=== PATIENT | female | born 1980 | race Caucasian/White ===

== ENCOUNTER 2025-04-17 15:04 | Emergency (ER) | payer OTHER ==
[~2025-04-17] VITALS: Ht 160 cm; Wt 58.9 kg
[2025-04-17 15:06] VITALS: BP 116/63; PULSE 79; RESP 16; TEMP 98.6; O2SAT 98
--- NOTE | 2025-04-17 15:45 | Physician Documentation ---
History of Present Illness ~ Chief Complaint: Bite-insect Stated Complaint: INSECT BITE Time Seen by MD: 15:35 HPI This is a 44-year-old female that presents to the emergency department for evaluation of what she thinks is a bug bite to the left lower extremity that she sustained while on a camping trip 3 days ago. That they area of concern presented as a small raised bump and has progressed since that time to an erythematous area approximately 3 in x 3 in is tender to the touch and slightly warm. Denies any fever or nausea or vomiting at this time. Patient denies seeing a bug actually by her but has surmised that is probably what happened. Patient denies any other significant past medical history. Tetanus within 5 years?: No Medication Reconciliation Allergies: Coded Allergies: No Known Allergies (Unverified , 04/17/25) Scheduled Doxycycline Hyclate (Doxycycline Hyclate), 1 CAP PO Q12H Review of Systems ROS As stated above in the HPI, otherwise all systems are reviewed and negative. Physical Exam Vital Signs: Temperature: 98.6, Source: Oral, Heart Rate: 79, Respiratory Rate: 16, BP: 116/63, Pulse Oximetry: 98, Weight: 58.900 Oxygen Flow Rate: 0 Physical Exam VITALS: Reviewed and as above. GENERAL: Alert, no apparent distress. HEENT: Normocephalic, atraumatic, PERRL, EOMI, dry mucosa, no erythema RESPIRATORY: Lungs clear, normal breath sounds, no respiratory distress. CHEST: No accessory muscle use, no retractions CV: Regular rate, rhythm, no edema, no murmur, No: JVD GI: Soft, non-tender, bowels sounds present, no rebound, guarding, or rigidity BACK: No CVA tenderness, or swelling MUSCULOSKELETAL No deformities, no edema SKIN: Warm and dry, small area of erythema with a raised bump, and warmth to the left lower extremity. NEURO: Oriented x4, No motor or sensory deficit PSYCH: Normal mood and affect, no agitation Progress Results/Orders Results/Orders Vital Signs 04/17/25 15:06 Temp 98.6 Pulse 79 Resp 16 B/P (MAP) 116/63 Pulse Ox 98 O2 Flow Rate 0 Medical Decision Making Findings This patient who presents with rash for 3 days consistent with bug bite/abscess. History and exam findings not consistent with dangerous etiologies of rash such as SJS/TEN, or secondary dangerous causes such as petechial rashes from thrombocytopenia or rickettsial infections. Rash does not appear urticarial with no signs of anaphylaxis either. Plan at this time is to treat symptomatically and prescribe. Instruct to follow up with PCP or emergency department if any worsening or fevers present. Departure Disposition: 01 HOME / SELF CARE / HOMELESS Impression: Primary Impression: Insect bites Additional Impression: Abscess Condition: Stable Additional Instructions: We saw you for a bug bite/abscess to the left lower extremity. We discussed prescribing antibiotics please take those antibiotics until they are completed. Follow-up with your primary care provider as in his your return home. Fevers or any worsening of the current symptoms please report to the closest emergency department. Referrals: NO PRIMARY CARE PROVIDER (PCP) Prescriptions Doxycycline Hyclate (Doxycycline Hyclate) 100 Mg Capsule 1 CAP PO Q12H for 10 Days, #20 CAP Prov: HERSON TORIBIOP 04/17/25 Doxycycline Hyclate (Doxycycline Hyclate) 100 Mg Capsule 1 CAP PO Q12H for 10 Days, #20 CAP Prov: HERSON TORIBIOP 04/17/25 Education Educated: Patient Educated regarding: diagnosis, treatment, need for follow up HERSON TORIBIOP Apr 17, 2025 15:45
[2025-04-17] MEDS ORDERED: DOXY-11 PO (15:49)
[2025-04-17] MEDS ORDERED: DOXY-1 PO (16:26)
== END 2025-04-17 15:50 | disposition home or self-care (01) ==
LOC: ER 15:06
DX: S80.862A Insect bite (nonvenomous), left lower leg, initial encounter (principal); L02.416 Cutaneous abscess of left lower limb; W57.XXXA Bitten or stung by nonvenomous insect and other nonvenomous arthropods, initial encounter; Y93.89 Activity, other specified; Y92.89 Other specified places as the place of occurrence of the external cause; Y99.8 Other external cause status
CPT/HCPCS: 99283